=== PATIENT | female | born 2000 | race Hispanic/Latino ===

== ENCOUNTER 2023-02-04 23:42 | Emergency (ER) | payer OTHER ==
[~2023-02-04] VITALS: Ht 157.5 cm; Wt 66.7 kg
[2023-02-04] MEDS ORDERED: KETOROLAC TROMETHAMINE 60 MG/2 ML VIAL ONE (23:52)
[2023-02-04] MEDS ORDERED: NAPROSYN500 MG PO (23:54)
[2023-02-04] MEDS ORDERED: ORPHENADRINE C100 MG PO (23:54)
[2023-02-04 23:59] VITALS: BP 133/81; PULSE 79; RESP 16; TEMP 98.3; O2SAT 100
[2023-02-05] MEDS ORDERED: ORPHENADRINE CITRATE 30 MG/ML VIAL IM ONE
[2023-02-05] MEDS ORDERED: KETOROLAC TROMETHAMINE 60 MG/2 ML VIAL IM ONE
== END 2023-02-05 00:31 | disposition home or self-care (01) ==
LOC: ER 23:46
DX: M54.2 Cervicalgia (principal); M62.838 Other muscle spasm
CPT/HCPCS: 99282; J1885; J2360

== ENCOUNTER 2023-07-17 02:00 | Emergency (ER) | payer SELFPAY ==
[~2023-07-17] VITALS: Ht 157.5 cm; Wt 73.5 kg
[~2023-07-17 02:00] MED LIST: NAPROSYN500 MG PO; ORPHENADRINE C100 MG PO
[2023-07-17 02:17] LABS: BASOPHILS # (AUTO) 0.1 (0.0-0.1); BASOPHILS % 0.5 % (0.0-1.0); EOSINOPHILS # (AUTO) 0.1 (0.0-0.4); EOSINOPHILS % 0.5 % (0.0-6.0); HEMATOCRIT 36.3 % (34.2-44.1); HEMOGLOBIN 11.7 g/dL (12.0-16.0); LYMPHOCYTES # (AUTO) 2.1 (1.0-3.2); LYMPHOCYTES % 22.1 % (18.0-39.1); MEAN CORPUSCULAR HEMOGLOBIN 25.9 pg (28-32); MEAN CORPUSCULAR HGB CONC 32.2 g/dL (31-35); MEAN CORPUSCULAR VOLUME 80.5 fL (81-99); MONOCYTES # (AUTO) 0.8 (0.2-0.8); MONOCYTES % 8.1 % (4.4-11.3); NEUTROPHILS # (AUTO) 6.6 (2.1-6.9); NEUTROPHILS % 68.6 % (38.7-80.0); PLATELET COUNT 355 x10e3/uL (140-360); RED BLOOD COUNT 4.51 x10e6/uL (3.6-5.1); RED CELL DISTRIBUTION WIDTH 14.2 % (11.7-14.4); WHITE BLOOD COUNT 9.56 x10e3/uL (4.8-10.8)
[2023-07-17 02:39] LABS: CLARITY,URINE CLEAR (CLEAR); COLOR,URINE YELLOW (YELLOW)
[2023-07-17 02:40] LABS: BILIRUBIN,URINE NEGATIVE (NEGATIVE); GLUCOSE, URINE NEGATIVE (NEGATIVE); KETONES,URINE NEGATIVE (NEGATIVE); LEUKOCYTE ESTERASE ,URINE TRACE (NEGATIVE); NITRITE,URINE NEGATIVE (NEGATIVE); PH,URINE 7 (5 - 7); PROTEIN,URINE DIPSTICK 1+ (NEGATIVE); URINE UROBILINOGEN 0.2 mg/dL (0.2 - 1)
[2023-07-17 02:46] LABS: ANION GAP 13.3 mmol/L (8-16); CALCIUM 9.8 mg/dL (8.4-10.2); CREATININE, SERUM 0.68 mg/dL (0.57-1.11)
[2023-07-17 02:53] LABS: POTASSIUM 3.3 mmol/L (3.5-5.1)
[2023-07-17 03:14] LABS: RBC,URINE 0-5 /HPF (0-5)
[2023-07-17 03:15] LABS: BACTERIA,URINE MANY /HPF; EPITHELIAL CELLS,URINE MANY /LPF
[2023-07-17 04:46] VITALS: BP 104/84; PULSE 84; RESP 19; TEMP 98.6; O2SAT 100
== END 2023-07-17 05:01 | disposition home or self-care (01) ==
LOC: ER 02:12
DX: O20.9 Hemorrhage in early pregnancy, unspecified (principal); O36.4XX0 Maternal care for intrauterine death, not applicable or unspecified
CPT/HCPCS: 36415; 76805; 80048; 81001; 84702; 85025; 99283

== ENCOUNTER 2024-07-14 08:56 | Emergency (ER) | payer BC ==
[~2024-07-14] VITALS: Ht 157.5 cm; Wt 73.5 kg
[2024-07-14 09:07] VITALS: PULSE 103; RESP 18; TEMP 98.3
[2024-07-14 09:42] LABS: BASOPHILS # (AUTO) 0.1 (0.0-0.1); BASOPHILS % 0.9 % (0.0-1.0); EOSINOPHILS # (AUTO) 0.1 (0.0-0.4); EOSINOPHILS % 0.9 % (0.0-6.0); HEMATOCRIT 39.4 % (34.2-44.1); HEMOGLOBIN 11.8 g/dL (12.0-16.0); LYMPHOCYTES # (AUTO) 1.9 (1.0-3.2); LYMPHOCYTES % 26.6 % (18.0-39.1); MEAN CORPUSCULAR HEMOGLOBIN 23.8 pg (28-32); MEAN CORPUSCULAR HGB CONC 29.9 g/dL (31-35); MEAN CORPUSCULAR VOLUME 79.6 fL (81-99); MONOCYTES # (AUTO) 0.5 (0.2-0.8); MONOCYTES % 7.4 % (4.4-11.3); NEUTROPHILS # (AUTO) 4.5 (2.1-6.9); NEUTROPHILS % 64.1 % (38.7-80.0); PLATELET COUNT 380 x10e3/uL (140-360); RED BLOOD COUNT 4.95 x10e6/uL (3.6-5.1); RED CELL DISTRIBUTION WIDTH 16.7 % (11.7-14.4); WHITE BLOOD COUNT 6.99 x10e3/uL (4.8-10.8)
[2024-07-14] MEDS: SODIUM CHLORIDE 0.9% 1000ML 1,000 ML IV STA (09:48)
[2024-07-14 09:54] LABS: INR 0.89; PROTHROMBIN TIME 12.6 seconds (11.9-14.5)
[2024-07-14 09:55] LABS: PARTIAL THROMBOPLASTIN TIME 29.2 seconds (23.8-35.5)
[2024-07-14 10:05] LABS: ALBUMIN 3.9 g/dL (3.5-5.0); ALBUMIN/GLOBULIN RATIO 1.1 (0.8-2.0); ANION GAP 14.2 mmol/L (8-16); BILIRUBIN,TOTAL 0.3 mg/dL (0.2-1.2); CALCIUM 9.8 mg/dL (8.4-10.2); CREATININE, SERUM 0.81 mg/dL (0.57-1.11); TOTAL PROTEIN 7.4 g/dL (6.5-8.1)
[2024-07-14 10:07] LABS: POTASSIUM 3.2 mmol/L (3.5-5.1)
[2024-07-14 10:28] LABS: HCG,QUANTITATIVE 91373.99 mIU/mL (0-10)
[2024-07-14 12:06] VITALS: BP 117/74; PULSE 76; RESP 16; O2SAT 100
== END 2024-07-14 12:09 | disposition home or self-care (01) ==
LOC: ER 09:15
DX: O20.0 Threatened abortion (principal)
CPT/HCPCS: 36415; 76817; 80053; 84702; 85025; 85610; 85730; 99284; J7030

== ENCOUNTER 2024-08-28 07:20 | Emergency (ER) | payer BC, OTHER ==
[~2024-08-28] VITALS: Ht 157.5 cm; Wt 80.9 kg
[2024-08-28] MEDS ORDERED: CEFDINIR300 MG PO (07:58)
[2024-08-28 08:13] VITALS: PULSE 78; RESP 16; TEMP 98.4; O2SAT 99
== END 2024-08-28 08:13 | disposition home or self-care (01) ==
LOC: FSED 07:31
DX: O23.41 Unspecified infection of urinary tract in pregnancy, first trimester (principal); R10.30 Lower abdominal pain, unspecified; R30.0 Dysuria
CPT/HCPCS: 81003; 99283